=== PATIENT | female | born 1955 | race Two or more races ===

== ENCOUNTER 2025-01-31 11:19 | Emergency (ER) | payer OTHER, BC ==
[~2025-01-31] VITALS: Ht 170.2 cm; Wt 56.7 kg
[2025-01-31] MEDS ORDERED: FARXIGA10 MG (13:02)
[2025-01-31] MEDS ORDERED: ROSUVASTATIN CA20 MG (13:03)
[2025-01-31] MEDS ORDERED: SERTRALINE HCL100 MG (13:04)
[2025-01-31] MEDS ORDERED: AMLODIPINE-OLM1 EAC2 (13:04)
[2025-01-31] MEDS ORDERED: CALCITRIOL0.5 MCG (13:05)
[2025-01-31 14:21] LABS: HEMATOCRIT 39.7 % (36.0-45.00); MEAN CELL VOLUME 92.5 fL (80.00-100.00); MEAN CORPUSCULAR HEMOGLOBIN 30.2 pg (27.00-32.0); MEAN CORPUSCULAR HGB CONC 32.7 g/dl (32.0-36.0); PLATELET COUNT 201 K/uL (150-450); RED BLOOD COUNT 4.29 M/uL (4.00-6.00); RED CELL DISTRIBUTION WIDTH 14.7 % (11.5-14.5)
[2025-01-31 14:51] LABS: PH,URINE 5.5 (5.0-8.0); URINE APPEARANCE Clear; URINE BILIRRUBIN Negative (NEGATIVE); URINE BLOOD Negative; URINE COLOR Yellow; URINE KETONE Negative (NEGATIVE); URINE LEUKOCYTE Negative; URINE NITRATE Negative; URINE UROBILINOGEN 0.2 E.U./dl
[2025-01-31 14:55] LABS: URINE BACTERIA 188.4 uL (0.0-1933); URINE CAST 1.76 uL (0.0-1.40); URINE EPITHELIAL CELLS 20.2 uL (0.0-38.8); URINE WBC 3.9 uL (0.0-23.2)
[2025-01-31 14:58] LABS: ALBUMIN 3.7 gm/dL (3.4-5.0); ALKALINE PHOSPHATASE 84 U/L (50-136); ALT/SGPT 30 U/L (12-78); ANION GAP 9 (10.0-20.0); AST/SGOT 22 U/L (15-37); BLOOD UREA NITROGEN 27 mg/dL (7-18); BUN CREA RATIO 14 (7.0-25.0); CALCIUM 9.5 mg/dL (8.5-10.1); CARBON DIOXIDE 28 mEq/L (21-32); CHLORIDE 111 mmol/L (98-107); CREATININE SERUM 1.95 mg/dL (0.55-1.02); GFR 25.29; GLOBULINA 4.2 G/DL (2.4-3.5); GLUCOSE FASTING 129 mg/dL (65-100); OSMOLALITY SERUM 294 MOSM/KG (275-295); POTASSIUM 3.69 mEq/L (3.5-5.1); SODIUM 144 mmol/L (136-145); TOTAL PROTEIN 7.9 gm/dL (6.4-8.2)
[2025-01-31 15:00] LABS: C-REACTIVE PROTEIN < 0.29 MG/DL (0.00-0.29)
[2025-01-31 15:35] LABS: URINE GLUCOSE 250 MG/DL (NEGATIVE); URINE PROTEIN 100 (NEGATIVE); URINE RBC 1.9 uL (0.0-20.8)
[2025-01-31] MEDS ORDERED: MEDROLPACK PO (17:32)
[2025-01-31] MEDS ORDERED: LEVALBUTER0.63 MG/3 IH (17:32)
[2025-01-31] MEDS ORDERED: PROAIR RESPICL90 MCG IH (17:32)
== END 2025-01-31 17:49 | disposition home or self-care (01) ==
LOC: ER 11:20
PROVIDERS: Specialist
DX: J34.9 Unspecified disorder of nose and nasal sinuses (principal); Z20.822 Contact with and (suspected) exposure to COVID-19; Z88.6 Allergy status to analgesic agent